=== PATIENT | male | born 1965 | race Caucasian/White ===

== ENCOUNTER 2023-03-14 12:33 | Emergency (ER) | payer OTHER ==
[~2023-03-14] VITALS: Ht 185.4 cm; Wt 115.9 kg
[~2023-03-14 12:33] MED LIST: NO HOME MEDICATIONS
[2023-03-14] MEDS ORDERED: D5 1/2 NS & 20 mEq KCl 1,000 ML IV ONE (13:00)
[2023-03-14] MEDS ORDERED: Glucagon 1 MG VIAL IV ONE (13:00)
[2023-03-14] MEDS ORDERED: Ondansetron 4 MG/2 ML VIAL IV PRN ×3 (13:00→14:15)
[2023-03-14] MEDS ORDERED: dexAMETHasone 10 MG/ML VIAL ONE (13:37)
[2023-03-14] MEDS ORDERED: fentaNYL 50 MCG/ML 2 ML VIAL ONE (13:37)
[2023-03-14] MEDS ORDERED: Succinylcholine PF 100 MG/5 ML SYRINGE/POLY AMP IV ONE (13:37)
[2023-03-14] MEDS ORDERED: Ondansetron 4 MG/2 ML VIAL ONE (13:37)
[2023-03-14] MEDS ORDERED: Lidocaine PF 2% (20 MG/ML) 5 ML VIAL ONE (13:37)
[2023-03-14] MEDS ORDERED: Ketorolac 30 MG/ML VIAL ONE (13:37)
[2023-03-14] MEDS ORDERED: Promethazine 25 MG/ML 1 ML VIAL IV PRN (14:15)
[2023-03-14] MEDS ORDERED: HYDROmorphone 2 MG/1 ML VIAL IV PRN (14:15)
[2023-03-14] MEDS ORDERED: hydrALAZINE 20 MG/ML 1 ML VIAL IV PRN (14:15)
[2023-03-14] MEDS ORDERED: fentaNYL 50 MCG/ML 2 ML VIAL IV PRN (14:15)
[2023-03-14] MEDS ORDERED: droPERidol 2.5 MG/ML 2 ML VIAL IV PRN (14:15)
[2023-03-14 14:23] VITALS: TEMP 97.4
[2023-03-14 14:59] VITALS: BP 129/92; PULSE 67
== END 2023-03-14 15:05 | disposition home or self-care (01) ==
LOC: COL.ER 12:33
DX: T18.128A Food in esophagus causing other injury, initial encounter (principal); W44.8XXA Other foreign body entering into or through a natural orifice, initial encounter
CPT/HCPCS: J0330; J1100; J1885; J2405; J2704; J3010; J3480